=== PATIENT | male | born 1995 | race African-American/Black ===

== ENCOUNTER 2020-03-08 21:26 | Emergency (ER) | payer SELFPAY ==
[~2020-03-08] VITALS: Ht 200.7 cm; Wt 97.7 kg
[2020-03-08] MEDS ORDERED: DiphenhydrAMINE HCL 25 MG CAPSULE PO ONE (23:15)
[2020-03-09 01:30] VITALS: BP 126/76
== END 2020-03-09 01:37 | disposition home or self-care (01) ==
LOC: EMS 21:27
DX: L50.9 Urticaria, unspecified (principal); F17.210 Nicotine dependence, cigarettes, uncomplicated; F12.90 Cannabis use, unspecified, uncomplicated